=== PATIENT | female | born 1965 | race Two or more races ===

== ENCOUNTER 2020-07-23 13:00 | Emergency (ER) | payer OTHER ==
[2020-07-23 13:50] VITALS: BP 130/83; PULSE 60; TEMP 97.9; BMI 35.3
[2020-07-23] MEDS ORDERED: KETOROLAC TROMETHAMINE 30 MG/1 ML VIAL IM ONE (15:00)
[2020-07-23] MEDS ORDERED: KETOROLAC TROMETHAMINE 30 MG/1 ML VIAL ONE (15:01)
== END 2020-07-23 17:16 | disposition home or self-care (01) ==
LOC: JERFT 13:00 → JER 13:00 → JERFT 17:16
PROC: 3E0233Z Introduction of Anti-inflammatory into Muscle, Percutaneous Approach (ICD-10-PCS; principal; 2020-07-23)
DX: M25.512 Pain in left shoulder (principal); M94.0 Chondrocostal junction syndrome [Tietze]
CPT/HCPCS: 71046-TC-FY; 71101-TC-LT-FY; 73030-TC-LT-FY; 93005; 93010; 99284-25